=== PATIENT | male | born 1965 | race Caucasian/White ===

== ENCOUNTER 2021-06-04 12:57 | Emergency (ER) | payer MEDICARE, MEDICAID ==
[~2021-06-04] VITALS: Ht 165.1 cm; Wt 86.4 kg
[2021-06-04] MEDS ORDERED: CYCL-1 PO (13:14)
[2021-06-04 13:31] VITALS: BP 108/70
== END 2021-06-04 13:42 | disposition home or self-care (01) ==
LOC: ER 12:57
DX: S39.012A Strain of muscle, fascia and tendon of lower back, initial encounter (principal); Z88.8 Allergy status to other drugs, medicaments and biological substances; Z79.899 Other long term (current) drug therapy; X58.XXXA Exposure to other specified factors, initial encounter; Y93.89 Activity, other specified; Y92.89 Other specified places as the place of occurrence of the external cause; Y99.8 Other external cause status
CPT/HCPCS: 99283

== ENCOUNTER 2022-01-25 23:10 | Emergency (ER) | payer BC, MEDICAID ==
[~2022-01-25] VITALS: Ht 170.2 cm; Wt 77.3 kg
[~2022-01-25 23:10] MED LIST: CYCL-1 PO
--- NOTE | 2022-01-26 00:38 | NUR ---
Pt presents to the ed with c/o lower back pain. The pt states he has a hx. of back pain for the past several years; the pt describes the pain as aching, sharp sensation on scale of 10/10; the pt states the pain is localized and that Orange usually helps, but he currently does not have any pain remedies. The pt states he has a hx of kidney dz, and surgical removal on one kidney; the pt denies other related c/o; he is a/o, nad, skin w/d.
[2022-01-26] MEDS ORDERED: diazepam 5mg tablet PO ONE (01:15)
--- NOTE | 2022-01-26 02:27 | NUR ---
pt medicated per mar; states he has no way liz; aware
--- NOTE | 2022-01-26 03:00 | NUR ---
Dr Yanez recommends pt wait to be observed after being medicated
--- NOTE | 2022-01-26 03:30 | NUR ---
Pt observed sleeping at bs with head bowing forward; offered pt the opportunity to lie on the bed to ensure he does not fall on the floor.
[2022-01-26 06:07] VITALS: BP 134/66
== END 2022-01-26 06:10 | disposition home or self-care (01) ==
LOC: ER 23:10
DX: M54.50 Low back pain, unspecified (principal); G89.29 Other chronic pain; Z88.6 Allergy status to analgesic agent; Z79.899 Other long term (current) drug therapy
CPT/HCPCS: 99283